=== PATIENT | female | born 1995 | race African-American/Black ===

== ENCOUNTER 2019-08-23 09:30 | Observation (INO) | payer MEDICAID ==
[2019-08-23] MEDS ORDERED: PREN-96 PO (11:37)
== END 2019-08-23 13:50 | disposition home or self-care (01) | DRG 566 ==
LOC: LDRP 09:30
PROVIDERS: ADMIT Specialist; ATTEND Specialist
DX: O46.93 Antepartum hemorrhage, unspecified, third trimester (principal); Z3A.30 30 weeks gestation of pregnancy
CPT/HCPCS: 59025; 76815; 81002; G0378

== ENCOUNTER 2019-08-29 12:45 | Observation (INO) | payer MEDICAID ==
[~2019-08-29 12:45] MED LIST: PREN-96 PO
== END 2019-08-29 16:47 | disposition home or self-care (01) | DRG 566 ==
LOC: LDRP 12:45
PROVIDERS: ADMIT Specialist; ATTEND Specialist
DX: O26.893 Other specified pregnancy related conditions, third trimester (principal); R10.9 Unspecified abdominal pain; O46.93 Antepartum hemorrhage, unspecified, third trimester; Z3A.30 30 weeks gestation of pregnancy
CPT/HCPCS: 59025; 76815; 81002; G0378

== ENCOUNTER 2019-09-07 07:12 | Observation (INO) | payer MEDICAID | END 2019-09-07 15:21 | disposition home or self-care (01) | DRG 566 | LOC: LDRP 14:11 | PROVIDERS: ADMIT Specialist; ATTEND Specialist | DX: O36.63X0 Maternal care for excessive fetal growth, third trimester, not applicable or unspecified (principal); N13.30 Unspecified hydronephrosis; O99.89 Other specified diseases and conditions complicating pregnancy, childbirth and the puerperium; Z3A.32 32 weeks gestation of pregnancy | CPT/HCPCS: 59025; 76818; 81002; G0378 ==

== ENCOUNTER 2019-09-11 19:45 | Observation (INO) | payer MEDICAID | END 2019-09-11 21:45 | disposition home or self-care (01) | DRG 566 | LOC: LDRP 19:45 | PROVIDERS: ADMIT Specialist; ATTEND Specialist | DX: O13.3 Gestational [pregnancy-induced] hypertension without significant proteinuria, third trimester (principal); Z3A.32 32 weeks gestation of pregnancy | CPT/HCPCS: 59025; 76818; 81002; G0378 ==

== ENCOUNTER 2019-09-13 14:18 | Observation (INO) | payer MEDICAID | END 2019-09-13 15:50 | disposition home or self-care (01) | DRG 566 | LOC: LDRP 14:18 | PROVIDERS: ADMIT Specialist; ATTEND Specialist | DX: O26.833 Pregnancy related renal disease, third trimester (principal); Z3A.33 33 weeks gestation of pregnancy | CPT/HCPCS: 59025; 76818; 81002; G0378 ==

== ENCOUNTER 2019-09-17 13:46 | Observation (INO) | payer MEDICAID | END 2019-09-17 15:45 | disposition home or self-care (01) | DRG 566 | LOC: LDRP 13:46 | PROVIDERS: ADMIT Specialist; ATTEND Specialist | DX: O36.4XX0 Maternal care for intrauterine death, not applicable or unspecified (principal); N13.30 Unspecified hydronephrosis; O23.43 Unspecified infection of urinary tract in pregnancy, third trimester; O99.89 Other specified diseases and conditions complicating pregnancy, childbirth and the puerperium; Z3A.33 33 weeks gestation of pregnancy | CPT/HCPCS: 59025; 76818; 81002; G0378 ==

== ENCOUNTER 2019-10-16 16:00 | Observation (INO) | payer MEDICAID | END 2019-10-16 19:05 | disposition home or self-care (01) | DRG 566 | LOC: LDRP 16:00 | PROVIDERS: ADMIT Specialist; ATTEND Specialist | DX: O26.893 Other specified pregnancy related conditions, third trimester (principal); N89.8 Other specified noninflammatory disorders of vagina; O99.89 Other specified diseases and conditions complicating pregnancy, childbirth and the puerperium; M54.5 Low back pain; Z3A.37 37 weeks gestation of pregnancy | CPT/HCPCS: 59025; 76818; 81002; 84112; G0378; Q0114 ==

== ENCOUNTER 2019-10-19 16:17 | Observation (INO) | payer MEDICAID ==
[2019-10-19] MEDS ORDERED: CEPH-37 PO (17:00)
== END 2019-10-19 17:27 | disposition home or self-care (01) | DRG 566 ==
LOC: LDRP 16:17
PROVIDERS: ADMIT Specialist; ATTEND Specialist
DX: O99.89 Other specified diseases and conditions complicating pregnancy, childbirth and the puerperium (principal); N13.30 Unspecified hydronephrosis; Z3A.38 38 weeks gestation of pregnancy
CPT/HCPCS: 59025; 76818; 81002; G0378

== ENCOUNTER 2019-10-20 01:10 | Observation (INO) | payer MEDICAID ==
[~2019-10-20 01:10] MED LIST changes: +CEPH-37 PO
== END 2019-10-20 02:07 | disposition home or self-care (01) | DRG 566 ==
LOC: LDRP 01:10
PROVIDERS: ADMIT Specialist; ATTEND Specialist
DX: O62.9 Abnormality of forces of labor, unspecified (principal); O99.89 Other specified diseases and conditions complicating pregnancy, childbirth and the puerperium; N13.30 Unspecified hydronephrosis; Z3A.38 38 weeks gestation of pregnancy
CPT/HCPCS: 59025; 81002; G0378

== ENCOUNTER 2019-10-20 12:00 | Observation (INO) | payer MEDICAID | END 2019-10-20 13:20 | disposition home or self-care (01) | DRG 566 | LOC: LDRP 12:00 | PROVIDERS: ADMIT Specialist; ATTEND Specialist | DX: O62.9 Abnormality of forces of labor, unspecified (principal); Z3A.38 38 weeks gestation of pregnancy | CPT/HCPCS: 59025; 81002; G0378 ==

== ENCOUNTER 2019-10-22 10:12 | Observation (INO) | payer MEDICAID | END 2019-10-22 12:45 | disposition home or self-care (01) | DRG 566 | LOC: LDRP 10:12 | PROVIDERS: ADMIT Specialist; ATTEND Specialist | DX: O34.63 Maternal care for abnormality of vagina, third trimester (principal); N89.8 Other specified noninflammatory disorders of vagina; Z3A.38 38 weeks gestation of pregnancy | CPT/HCPCS: 59025; 81002; 84112; G0378; Q0114 ==

== ENCOUNTER 2019-10-26 13:38 | Observation (INO) | payer MEDICAID | END 2019-10-26 15:50 | disposition home or self-care (01) | LOC: LDRP 13:38 → UNDODISOB 15:45 | PROVIDERS: ADMIT Obstetrics & Gynecology; ATTEND Obstetrics & Gynecology | DX: O36.8130 Decreased fetal movements, third trimester, not applicable or unspecified (principal); O26.893 Other specified pregnancy related conditions, third trimester; N89.8 Other specified noninflammatory disorders of vagina; R12 Heartburn; Z3A.39 39 weeks gestation of pregnancy | CPT/HCPCS: 59025; 76818; 81002; G0378 ==

== ENCOUNTER 2019-10-28 13:35 | Observation (INO) | payer MEDICAID | END 2019-10-28 15:12 | disposition home or self-care (01) | LOC: LDRP 13:35 | PROVIDERS: ADMIT Obstetrics & Gynecology; ATTEND Obstetrics & Gynecology | DX: O99.89 Other specified diseases and conditions complicating pregnancy, childbirth and the puerperium (principal); N13.30 Unspecified hydronephrosis; O62.9 Abnormality of forces of labor, unspecified; Z87.59 Personal history of other complications of pregnancy, childbirth and the puerperium; Z3A.39 39 weeks gestation of pregnancy | CPT/HCPCS: 59025; 76818; 81002; G0378 ==

== ENCOUNTER 2019-10-29 05:15 | Inpatient (IN) | payer MEDICAID ==
[~2019-10-29] VITALS: Ht 160 cm; Wt 81.2 kg
[2019-10-29] MEDS ORDERED: LACT. RINGERS/OXYTOCIN 20UNITS 1,000 ML IV SCH (05:35)
[2019-10-29] MEDS ORDERED: WITCH HAZEL-GLYCERIN PAD TOP PRN (05:45)
[2019-10-29] MEDS ORDERED: PHISODERM TOP SOLN 240ML BTL TOP PRN (05:45)
[2019-10-29] MEDS ORDERED: DERMOPLAST 60ML BOTTLE TOP PRN (05:45)
[2019-10-29] MEDS: LACTATED RINGER'S 1,000 ML IV SCH ×2 (05:55→13:37)
[2019-10-29 06:17] LABS: Basophils # (auto) 0 10 ^3/uL (0-0.2); Basophils % (auto) 0.2 % (0.0-2.0); Eosinophils # (auto) 0.1 10 ^3/uL (0-0.8); Eosinophils % (auto) 2.6 % (0.0-7.0); Hematocrit 37.3 % (36.0-46.0); Hemoglobin 12.3 g/dL (12.2-16.2); Lymphocytes # (auto) 1.4 10 ^3/uL (0.4-5.4); Lymphocytes % (auto) 26.4 % (10.0-50.0); Mean Corpuscular Hemoglobin 28.6 pg (28.0-32.0); Mean Corpuscular Hgb Conc. 32.9 g/dL (32.0-36.0); Mean Corpuscular Volume 86.9 fL (80.0-100.0); Monocytes # (auto) 0.7 10 ^3/uL (0-1.3); Monocytes % (auto) 12.1 % (0.0-12.0); Neutrophils # (auto) 3.2 10 ^3/uL (1.6-8.6); Neutrophils % (auto) 58.7 % (37.0-80.0); Platelet Count (auto) 191 10^3/uL (140-450); Red Blood Cells 4.29 10^6/uL (4.0-5.20); White Blood Cell 5.5 10^3/uL (4.4-10.8)
[2019-10-29 06:19] LABS: Urine Bacteria FEW /hpf (None Seen); Urine Blood Negative /uL (Negative); Urine Mucus FEW (None Seen); Urine Specific Gravity 1.025 (1.001-1.035); Urine WBC 4 /hpf (0 - 5)
[2019-10-29 06:32] LABS: INR 0.91 (0.9-1.15); Partial Thromboplastin Time 28.1 sec (23.0-31.2)
[2019-10-29 06:36] LABS: Alcohol, Urine < 3.0 mg/dL (0-10); Amphetamine Screen, Urine NEGATIVE (NEGATIVE); Barbiturate Scree,Urine NEGATIVE (NEGATIVE); Benzodiazephine Screen, Urine NEGATIVE (NEGATIVE); Cannabinoid Screen, Urine NEGATIVE (NEGATIVE); Cocaine Screen, Urine NEGATIVE (NEGATIVE); Opiate Scree,Urine NEGATIVE (NEGATIVE); Phencyclidine Screen, Urine NEGATIVE (NEGATIVE)
[2019-10-29 06:38] LABS: Albumin 2.5 g/dL (3.4-5.0); Calcium 8.5 mg/dL (8.5-10.1); Potassium 3.6 mmol/L (3.5-5.1)
[2019-10-29 06:41] LABS: BUN/Creatinine Ratio 11.1; Bilirubin, Total 0.2 mg/dL (0.2-1.0); Total Protein 6.5 g/dL (6.4-8.2)
[2019-10-29] MEDS ORDERED: LIDOCAINE 2%HCL (LOCAL ANESTH.) INJ 20ML MDV ID ONE (07:45)
[2019-10-29] MEDS ORDERED: PROMETHAZINE HCL 25 MG/ML 1ML IV ONE (13:15)
[2019-10-29] MEDS ORDERED: BUTORPHANOL TARTRATE 2 MG/1 ML VIAL IV ONE (13:15)
[2019-10-29] MEDS ORDERED: LACT. RINGERS/OXYTOCIN 20UNITS 500 ML IV ONE (16:03)
[2019-10-29] MEDS ORDERED: IBUPROFEN 600 MG TAB PO PRN (16:15)
--- NOTE | 2019-10-29 18:30 | NUR ---
Teaching: Reviewed information in [employer] booklet with patient. Discussed benefits of and risks associated with not . Discussed different positions, proper latch, feeding cues, and baby-led . Provided information of medication side effects related to . All questions and concerns addressed at this time. Patient verbalized understanding of information.
--- NOTE | 2019-10-29 18:45 | NUR ---
Ambulation: Patient OOB with standby assistance by RN. Patient ambulated to bathroom with steady gait. Patient able to void 500ml of clear yellow urine without difficulty. [facility] teaching provided with returned demonstration by patient. Clean gown provided and bed linen changed. Patient ambulated to bedside chair with steady gait and no distress noted.
[2019-10-29] MEDS: IBUPROFEN 600 MG TAB PO PRN (19:57)
[2019-10-29 22:44] VITALS: BP 136/62
[2019-10-30] MEDS: IBUPROFEN 600 MG TAB PO PRN ×3 (02:11→16:55)
[2019-10-30] MEDS: ACETAMINOPHEN 325 MG TAB PO PRN ×4 (02:47→19:04)
[2019-10-30 03:00] VITALS: BP 135/63
[2019-10-30 05:11] LABS: RPR Non Reactive (Non Reactive)
[2019-10-30 07:23] VITALS: BP 128/58
[2019-10-30 11:00] VITALS: BP 130/59
[2019-10-30 15:00] VITALS: BP 117/59
[2019-10-30] MEDS ORDERED: MEASLES, MUMPS & RUBELLA VAC(MMRII) 0.5ML SC ONE (16:00)
[2019-10-30 18:45] VITALS: BP 127/66
--- NOTE | 2019-10-30 18:52 | NUR ---
MD calls unit complete SBAR given Verbal orders received from D/C order, read back and verified.
--- NOTE | 2019-10-30 20:00 | NUR ---
Discharge: Discharge instructions given as ordered. Pt encouraged to follow up with [employer] as instructed. All questions and concerns addressed. Patient verbalized understanding. Medication reconciliation completed and copy given to patient. All required/requested vaccines given and copies of vaccinations given to patient. Patient encouraged to prepare to depart unit.
--- NOTE | 2019-10-30 20:54 | NUR ---
Discharge: Patient taken to vehicle via ambulation with all personal belongings, accompanied by staff and family member. No distress noted at time of departure, no adverse changes in status since initial assessment.
== END 2019-10-30 20:54 | disposition home or self-care (01) | DRG 560 ==
LOC: LDRP 05:15
PROVIDERS: ADMIT Specialist; ATTEND Specialist
PROC: 10D07Z6 Extraction of Products of Conception, Vacuum, Via Natural or Artificial Opening (ICD-10-PCS; principal; 2019-10-29)
PROC: 3E033VJ Introduction of Other Hormone into Peripheral Vein, Percutaneous Approach (ICD-10-PCS; 2019-10-29)
DX: O98.82 Other maternal infectious and parasitic diseases complicating childbirth (principal); O99.284 Endocrine, nutritional and metabolic diseases complicating childbirth; E07.89 Other specified disorders of thyroid; O77.0 Labor and delivery complicated by meconium in amniotic fluid; Z20.828 Contact with and (suspected) exposure to other viral communicable diseases; Z3A.39 39 weeks gestation of pregnancy; Z37.0 Single live birth; O99.324 Drug use complicating childbirth; F19.90 Other psychoactive substance use, unspecified, uncomplicated
CPT/HCPCS: 36415; 59025; 59409; 80053; 80307; 81001; 84112; 85025; 85610; 85730; 86592; 86850; 86900; 86901; 87426; 96361; 96365; 96366; 96372; G0378; J2590

== ENCOUNTER 2021-05-02 10:50 | Observation (INO) | payer MEDICAID ==
[~2021-05-02] VITALS: Ht 165.1 cm; Wt 71.7 kg
== END 2021-05-02 13:09 | disposition home or self-care (01) ==
LOC: LDRP 10:50
PROVIDERS: ADMIT Obstetrics & Gynecology; ATTEND Obstetrics & Gynecology
DX: O62.9 Abnormality of forces of labor, unspecified (principal); Z3A.25 25 weeks gestation of pregnancy; Z87.891 Personal history of nicotine dependence
CPT/HCPCS: 59025; 81002; G0378

== ENCOUNTER 2021-08-13 11:28 | Observation (INO) | payer MEDICAID | END 2021-08-13 12:46 | disposition home or self-care (01) | LOC: LDRP 11:28 | PROVIDERS: ADMIT Obstetrics & Gynecology; ATTEND Obstetrics & Gynecology | DX: O36.63X0 Maternal care for excessive fetal growth, third trimester, not applicable or unspecified (principal); O62.9 Abnormality of forces of labor, unspecified; Z3A.39 39 weeks gestation of pregnancy | CPT/HCPCS: 59025; 81002; 94760; G0378 ==

== ENCOUNTER 2021-08-15 10:25 | Observation (INO) | payer MEDICAID | END 2021-08-15 13:17 | disposition home or self-care (01) | LOC: LDRP 10:25 | PROVIDERS: ADMIT Obstetrics & Gynecology; ATTEND Obstetrics & Gynecology | DX: O62.9 Abnormality of forces of labor, unspecified (principal); O36.63X0 Maternal care for excessive fetal growth, third trimester, not applicable or unspecified; Z3A.40 40 weeks gestation of pregnancy | CPT/HCPCS: 59025; 76818; 81002; 94760; G0378 ==

== ENCOUNTER 2021-08-17 07:30 | Inpatient (IN) | payer MEDICAID ==
[~2021-08-17] VITALS: Ht 162.6 cm; Wt 80.7 kg
[2021-08-17] MEDS ORDERED: PENICILLIN G POT 5MIL/D5 50ML 50 ML IV ONE (07:45)
[2021-08-17] MEDS ORDERED: LIDOCAINE 2%HCL (LOCAL ANESTH.) INJ 10ml MDV IJ PRN (07:45)
[2021-08-17] MEDS ORDERED: PROMETHAZINE HCL 25 MG/ML 1ML IV PRN (07:45)
[2021-08-17] MEDS ORDERED: BUTORPHANOL TARTRATE 2 MG/1 ML VIAL IV PRN ×2 (07:45)
[2021-08-17 08:15] LABS: Basophils # (auto) 0 10 ^3/uL (0-0.2); Basophils % (auto) 0.4 % (0.0-2.0); Eosinophils # (auto) 0.1 10 ^3/uL (0-0.8); Eosinophils % (auto) 2.6 % (0.0-7.0); Hematocrit 36.1 % (36.0-46.0); Hemoglobin 12.6 g/dL (12.2-16.2); Lymphocytes # (auto) 0.8 10 ^3/uL (0.4-5.4); Lymphocytes % (auto) 16.2 % (10.0-50.0); Mean Corpuscular Hemoglobin 29.5 pg (28.0-32.0); Mean Corpuscular Hgb Conc. 34.9 g/dL (32.0-36.0); Mean Corpuscular Volume 84.3 fL (80.0-100.0); Monocytes # (auto) 0.5 10 ^3/uL (0-1.3); Monocytes % (auto) 10.7 % (0.0-12.0); Neutrophils # (auto) 3.3 10 ^3/uL (1.6-8.6); Neutrophils % (auto) 70.1 % (37.0-80.0); Red Blood Cells 4.28 10^6/uL (4.0-5.20); Red Cell Distribution Width 13.9 % (11.8-14.3); White Blood Cell 4.7 10^3/uL (4.4-10.8)
[2021-08-17 08:25] LABS: Nucleated Red Blood Cells % 0.1 %
[2021-08-17 08:25] LABS: Urine Bacteria NONE SEEN /hpf (None Seen); Urine Blood Negative /uL (Negative); Urine Mucus FEW (None Seen); Urine Specific Gravity 1.026 (1.001-1.035); Urine WBC 10 /hpf (0 - 5)
[2021-08-17 08:31] LABS: INR 0.9 (0.9-1.15); Partial Thromboplastin Time 26.2 sec (23.6-33.0)
[2021-08-17 08:39] LABS: Potassium 3.8 mmol/L (3.5-5.1)
[2021-08-17 08:46] LABS: Alcohol, Urine < 3.0 mg/dL (0-10); Amphetamine Screen, Urine NEGATIVE (NEGATIVE); Barbiturate Scree,Urine NEGATIVE (NEGATIVE); Benzodiazephine Screen, Urine NEGATIVE (NEGATIVE); Cannabinoid Screen, Urine NEGATIVE (NEGATIVE); Cocaine Screen, Urine NEGATIVE (NEGATIVE); Opiate Scree,Urine NEGATIVE (NEGATIVE); Phencyclidine Screen, Urine NEGATIVE (NEGATIVE)
[2021-08-17 08:47] LABS: Albumin 2.6 g/dL (3.4-5.0); BUN/Creatinine Ratio 12.5; Bilirubin, Total 0.5 mg/dL (0.2-1.0); Calcium 8.7 mg/dL (8.5-10.1); Total Protein 7.1 g/dL (6.4-8.2)
[2021-08-17] MEDS: DERMOPLAST 60ML BOTTLE TOP PRN ×2 (08:53→21:21)
[2021-08-17] MEDS: PHISODERM TOP SOLN 240ML BTL TOP PRN ×2 (08:53→21:21)
[2021-08-17] MEDS: WITCH HAZEL-GLYCERIN PAD TOP PRN ×2 (08:54→21:21)
[2021-08-17] MEDS ORDERED: miSOPROStol 50 MCG per PRE-CUT 1/2 TAB PO PRN (09:15)
[2021-08-17] MEDS: LACTATED RINGER'S 1,000 ML IV SCH ×3 (09:27→18:47)
[2021-08-17] MEDS: PENICILLIN G POTASSIUM 2,500,000 UNITS in D5W 5% 50 ML IV SCH ×2 (13:03→17:17)
[2021-08-17] MEDS ORDERED: LACT. RINGERS/OXYTOCIN 20UNITS 500 ML IV ONE ×2 (13:45→14:15)
[2021-08-17] MEDS ORDERED: LACT. RINGERS/OXYTOCIN 20UNITS 1,000 ML IV SCH (13:45)
[2021-08-17] MEDS ORDERED: TERBUTALINE SULFATE 1 MG/ML 1ML VIAL SC PRN (13:45)
[2021-08-17] MEDS ORDERED: NALOXONE HCL 0.4 MG/ML VIAL IV ONE (17:30)
[2021-08-17] MEDS ORDERED: fentaNYL CITRATE 100 MCG/2 ML VL IV ONE (17:30)
[2021-08-17] MEDS ORDERED: ePHEDrine SULFATE 50 MG/ML AMP IV ONE (17:30)
[2021-08-17] MEDS ORDERED: LACTATED RINGER'S 1,000 ML IV ONE ×2 (17:30)
[2021-08-17] MEDS ORDERED: ROPIVACAINE HCL 200 ML EPI SCH (17:30)
[2021-08-17] MEDS ORDERED: LIDOCAINE HCL 2 %PF INJ 10ML AMP IJ ONE (17:30)
[2021-08-17] MEDS ORDERED: ONDANSETRON ODT 4 MG TAB PO PRN (21:00)
[2021-08-17] MEDS: DOCUSATE SOD 100 MG CAP PO SCH (22:00)
[2021-08-17] MEDS ORDERED: IBUPROFEN 800 MG TAB PO ONE (23:00)
[2021-08-18 03:03] VITALS: BP 134/65
[2021-08-18] MEDS: IBUPROFEN 800 MG TAB PO PRN ×4 (03:30→22:05)
[2021-08-18] MEDS: DOCUSATE SOD 100 MG CAP PO SCH ×2 (03:33→22:06)
[2021-08-18] MEDS ORDERED: IBUPROFEN 800 MG TAB PO SCH (06:00)
[2021-08-18 06:07] LABS: RPR Non Reactive (Non Reactive)
[2021-08-18 07:10] VITALS: BP 115/57
[2021-08-18 11:08] VITALS: BP 113/58
[2021-08-18] MEDS: ACETAMINOPHEN 325 MG TAB PO PRN ×2 (11:11→18:33)
[2021-08-18 14:31] VITALS: BP 128/62
[2021-08-18 19:00] VITALS: BP 130/68
[2021-08-18 23:00] VITALS: BP 129/62
[2021-08-19 03:00] VITALS: BP 131/59
[2021-08-19] MEDS: ACETAMINOPHEN 325 MG TAB PO PRN ×2 (03:10→07:32)
[2021-08-19] MEDS: IBUPROFEN 800 MG TAB PO PRN (05:49)
[2021-08-19 06:42] VITALS: BP 134/74
== END 2021-08-19 09:27 | disposition home or self-care (01) | DRG 560 ==
LOC: LDRP 07:30
PROVIDERS: ADMIT Obstetrics & Gynecology Obstetrics; ATTEND Obstetrics & Gynecology Obstetrics
PROC: 10E0XZZ Delivery of Products of Conception, External Approach (ICD-10-PCS; principal; 2021-08-17)
PROC: 3E0R3BZ Introduction of Anesthetic Agent into Spinal Canal, Percutaneous Approach (ICD-10-PCS; 2021-08-17)
PROC: 00HU33Z Insertion of Infusion Device into Spinal Canal, Percutaneous Approach (ICD-10-PCS; 2021-08-17)
DX: O48.0 Post-term pregnancy (principal); Z37.0 Single live birth; O36.63X0 Maternal care for excessive fetal growth, third trimester, not applicable or unspecified; Z20.822 Contact with and (suspected) exposure to COVID-19; O66.0 Obstructed labor due to shoulder dystocia; O99.824 Streptococcus B carrier state complicating childbirth; Z3A.40 40 weeks gestation of pregnancy
CPT/HCPCS: 36415; 59025; 59409; 62282; 80053; 80307; 81001; 81002; 85025; 85610; 85730; 86592; 86850; 86900; 86901; 94760; 96360; 96361; 96365; G0378; J2001; J2540; J2590; J7060